=== PATIENT | male | born 1970 | race African-American/Black ===

== ENCOUNTER 2020-09-13 10:25 | Emergency (ER) | payer OTHER, SELFPAY ==
--- NOTE | ~2020-09-13 | XR_ITS ---
EXAMINATION: XR knee RT 3V DATE: 09/13/2020 11:29 INDICATION: Right knee pain TECHNIQUE: Three views of the right knee were obtained. COMPARISON: None. FINDINGS: There is an oblique lucency in the medial aspect of the patella seen only on the sunrise vi ew. There is mild tricompartmental osteoarthritis characterized by tiny marginal osteophytes. A small knee joint effusion is present. Soft tissue swelling is present. IMPRESSION: 1. Acute nondisplaced patellar fracture. Reviewed, dictated and finalized at location A. ICIDE CHEMIST
--- NOTE | ~2020-09-13 | XR_ITS ---
EXAMINATION: XR thoracic spine 3V DATE: 09/13/2020 11:29 INDICATION: Back pain TECHNIQUE: AP, lateral and lateral swimmer's views of the thoracic spine were obtained. COMPARISON: None. FINDINGS: There is no fracture, dislocation, or subluxation. The vertebral body heights, alignment, a nd intervertebral disc spaces are normal. The paravertebral soft tissues are unremarkable. IMPRESSION: 1. No acute osseous abnormality. Reviewed, dictated and finalized at location A. TRICAL MAINTENANCE SUPERVISOR
--- NOTE | ~2020-09-13 | XR_ITS ---
EXAMINATION: XR shoulder LT min 2V INDICATION: Left shoulder pain TECHNIQUE: Four views of the left shoulder are submitted. COMPARISON: None FINDINGS: Normal alignment. No fracture. Glenohumeral and acromioclavicular joint spaces are normal. Soft tissues are unremarkable. IMPRESSION: 1. No acute osseous abnormality. Reviewed, dictated and finalized at location A. K UNLOADER
--- NOTE | ~2020-09-13 | XR_ITS ---
EXAMINATION: XR lumbar spine 2-3V DATE: 09/13/2020 11:29 INDICATION: Low back pain TECHNIQUE: Anteroposterior and lateral views of the lumbar spine, and cone-down lateral view of the l umbosacral junction were obtained. COMPARISON: None. FINDINGS: No fracture is identified. There are 6 mm of retrolisthesis of L5 on S1. There is advanced loss of intervertebral disc space height at L5-S1. The vertebral body heights are maintained. There i s patchy sclerosis throughout the pelvis. There is questionable sclerosis of the L4 and L5 vertebral bodies. IMPRESSION: 1. Severe spondylosis at L5-S1 without acute findings identified. 2. Patchy sclerosis throughout the pelvis which could reflect Paget's disease or possibly metastatic disease in the appropriate clinical setting. Further evaluation is recommended. Reviewed, dictated and finalized at location A. SION TESTER IMPRESSION: 1. Severe spondylosis at L5-S1 without acute findings identified. 2. Patchy sclerosis throughout the pelvis which could reflect Paget's disease o r possibly metastatic disease in the appropriate clinical setting. Further eval uation is recommended.
--- NOTE | ~2020-09-13 | XR_ITS ---
EXAMINATION: XR ankle RT min 3V INDICATION: Right ankle pain TECHNIQUE: Four views of the right ankle are obtained. COMPARISON: None available FINDINGS: There is no fracture, dislocation, or subluxation. The bones, soft tissues, and joint space s are normal. IMPRESSION: 1. No acute osseous abnormality. Reviewed, dictated and finalized at location A. T CLERK
[2020-09-13 10:39] VITALS: BP 152/102; PULSE 71; RESP 16; TEMP 36.4; O2SAT 100
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
== END 2020-09-13 12:22 | disposition home or self-care (01) ==
PROVIDERS: Emergency Provider Nurse Practitioner Family
DX: S82.001A Unspecified fracture of right patella, initial encounter for closed fracture (principal); V49.40XA Driver injured in collision with unspecified motor vehicles in traffic accident, initial encounter; R93.7 Abnormal findings on diagnostic imaging of other parts of musculoskeletal system
CPT/HCPCS: 72072; 72100; 73030; 73562; 73610; 99214; G0463; L1830

== ENCOUNTER → 2021-01-12 00:47 | Outpatient (CLI) | payer OTHER, SELFPAY ==
[2021-01-12 18:32] LABS: SARS-CoV-2 RNA PCR Negative
== END ==
PROVIDERS: PCP Chiropractor; Visit Provider Orthopaedic Surgery
DX: Z01.812 Encounter for preprocedural laboratory examination (principal); Z20.822 Contact with and (suspected) exposure to COVID-19
CPT/HCPCS: C9803; U0003; U0005

== ENCOUNTER 2021-01-15 01:27 | Day surgery (SDC) | payer OTHER, SELFPAY ==
[2021-01-08 08:26] VITALS: BMI 37.6
--- NOTE | 2021-01-14 10:16 | WPDANESEPPF ---
Anes - Initial Pre Proc Eval Procedure: Operation Date: 01/15/21 07:30 Proposed Procedures p Left Rotator Cuff Repair - Laureano Amado MD Date/Time: 01/14/21 10:16 Surgeon: Laureano Amado MD Pre Op Diagnosis: Left Rotator Cuff Tendonopathy Patient Data Age: 50 Gender: M Height: 1.83 m Weight: 126 kg Allergies Allergy/AdvReac Type Severity Reaction Status Date / Time No Known Allergies Allergy Verified 01/15/21 06:41 Home Medications Medication Instructions Recorded Confirmed Type multivitamin [Multi-Day] 1 tablet PO DAILY 01/08/21 01/15/21 History Patient hx anesthesia problems: none Family hx anesthesia problems: none [facility] Past Medical History Medical History (Updated 12/24/20 @ 15:47 by Fifi Carcamo, RT(R)) Depression Dizziness Light headedness Nausea Right knee pain Vertigo Vision changes Weight gain Surgical History Surgical History H/O repair of rotator cuff Social History Social History Smoking status: Never smoker Alcohol intake: current Drinks per week: 1 Substance use: never Substance use type: does not use Living arrangements: with family Spiritual care concerns: No Anes - Eval Final PreProcedure Day of Procedure 01/14/21 10:16 Patient weight: obese Heart: regular rate and rhythm Lungs: clear to auscultation and normal air movement Airway: Mallampati scale class II Neurological: alert and oriented Last oral intake: >/= 8 hours ASA classification: II Emergent: no Anesthetic plan: proceed Anesthesia type and monitoring: general ETT and standard monitoring Informed Consent: The patient's anesthetic plan and its attendant risks and benefits were discussed with the patient/family/POA. Questions were solicited and answers provided to the satisfaction of the patient/family/POA.
--- NOTE | 2021-01-14 10:17 | WPDANESPNB ---
Anes - Peripheral Nerve Block Date/Time: 01/14/21 10:17 I have discussed with the patient/family/POA the placement of a peripheral nerve block for post-operative pain management, including associated risks, benefits, complications, and side effects. Alternative methods of post-operative analgesia were detailed. Questions were solicited and answers provided to the satisfaction of the patient/family/POA. Time-Out: A pre-procedural Time-Out was completed immediately before starting the procedure and confirmed: Patient Identification, Site, Procedure, Patient Position and the Availability of Requisite Equipment. Clinical Indications: Acute post-operative pain management requested by the operative surgeon. Nerve Block Insertion Note Anes-nerve block: interscalene left Patient position: supine Skin prep: chlorhexidine Needle: 22 gauge, stimulating, insulated echogenic needle. Needle length: 50 mm Technique: ultrasound Injectate: bupivacaine 0.5% with epi 5 mcg/ml (30cc- no epi) Observations: tolerated well Complications: none Procedure start time:: 736 Procedure end time:: 740
[2021-01-15] VITALS (9 sets, daily range): BP systolic 115–171; BP diastolic 70–93; PULSE 74–89; RESP 16–20; TEMP 36.6–36.9; O2SAT 95–100
[2021-01-15] MEDS: ACETAMINOPHEN 500 MG TABLET 1000 MG PO (06:44)
[2021-01-15] MEDS: CELECOXIB 200 MG CAPSULE PO (06:44)
[2021-01-15] MEDS: LACTATED RINGERS 1,000 ML 30 ML IV CONT ×2 (07:08→10:24)
--- NOTE | 2021-01-15 07:23 | WPDHPUPDATE1 ---
History and Physical Update Update Date/Time: 01/15/21 07:23 History and Physical has been reviewed, including an updated exam of the patient. There are NO changes in the patient's condition. Risks, benefits, and alternatives have been discussed and questions answered. Patient agrees to proceed with procedure.
[2021-01-15] MEDS: ceFAZolin 3 GM/D5W 100 ML 100 ML IVPB (07:43)
--- NOTE | 2021-01-15 10:22 | WPDHPUPDATE1 ---
History and Physical Update Update Date/Time: 01/15/21 10:22 History and Physical has been reviewed, including an updated exam of the patient. There are NO changes in the patient's condition. Risks, benefits, and alternatives have been discussed and questions answered. Patient agrees to proceed with procedure.
--- NOTE | 2021-01-15 10:22 | PM.PROC ---
Procedure Note - Detailed Date of procedure: 01/15/21 Pre-op diagnosis: Left Rotator Cuff Tendonopathy LEFT ROTATOR CUFF TEAR Post-op diagnosis: same Procedure performed: REPAIR OF LEFT ROTATOR CUFF Description of procedure: THE PATIENT WAS TAKEN TO THE OPERATING ROOM AND THEN INTUBATED AND PLACED IN THE BEACH CHAIR POSITION. THE LEFT UPPER EXTREMITY WAS PREPPED AND DRAPED IN THE NORMAL STERILE FASHION. AN INCISION WAS MADE IN BETWEEN THE TONY-LATERAL ACROMION AND THE AC JOINT. THE FASCIA WAS IDENTIFIED. NEXT A MINI OPEN INCISION WAS MADE THROUGH THE DELTOID MUSCLE EXPOSING THE SUBACROMIAL SPACE. A LIMITED ACROMIOPLASTY WAS PREFORMED. THE ROTATOR CUFF WAS IDENTIFIED. THERE WAS A FULL THICKNESS TEAR TO THE CUFF. THERE WAS MILD RETRACTION. THE TEAR MEASURED ABOUT 2 CM FROM ANTERIOR TO POSTERIOR. THE GREATER TUBEROSITY WAS DEBRIDED TO BLEEDING BONE. 2 ARTHREX 5.5 SUTURE ANCHORS WERE PLACED IN TO GOOD BONE AND HAD VERY GOOD BITES. ROXANA-ANG TYPE REPAIRS WERE DONE TO THE ROTATOR CUFF AND THERE WAS GOOD APPROXIMATION TO THE GREATER TUBEROSITY. THE REPAIR WAS EXCELLENT. THERE WAS NO IMPINGEMENT ON THE REPAIR FROM THE ACROMION WITH RANGE OF MOTION. THE WOUND WAS IRRIGATED WITH COPIOUS AMOUNTS OF ANTIBIOTIC SOLUTION. THE DELTOID MUSCLE WAS REPAIRED WITH #2 FIBER WIRE AND 0 VICRYL SUTURE. THE SUBCUTANEOUS LAYER WAS APPROXIMATED WITH 2-0 VICRYL. THE SKIN WAS APPROXIMATED WITH 3-0 QUIL AND DERMABOND. STERILE DRESSING WAS APPLIED. PATIENT WAS EXTUBATED. Anesthesia: GETA Surgeon: Laureano Amado MD Estimated blood loss (mL): 20 Complications: No immediate complications Condition: stable Disposition: PACU
== END 2021-01-15 12:50 | disposition home or self-care (01) ==
PROVIDERS: PCP Chiropractor; Visit Provider Orthopaedic Surgery
PROC: (CPT 23420; principal; 2021-01-15 07:30)
DX: S46.012A Strain of muscle(s) and tendon(s) of the rotator cuff of left shoulder, initial encounter (principal); V49.9XXA Car occupant (driver) (passenger) injured in unspecified traffic accident, initial encounter; G89.18 Other acute postprocedural pain; F32.9 Major depressive disorder, single episode, unspecified; E66.01 Morbid (severe) obesity due to excess calories; Z68.41 Body mass index [BMI] 40.0-44.9, adult
CPT/HCPCS: 23410; 64415; A9270; C1713; C9803; J0330; J0690; J1100; J2250; J2405; J2704; J3010; J7120; U0003; U0005